=== PATIENT | female | born 1965 | race Caucasian/White ===

== ENCOUNTER 2021-02-25 08:03 | Inpatient (IN) | payer MEDICARE, MEDICAID ==
[~2021-02-25] VITALS: Ht 152.4 cm; Wt 101.2 kg
[2021-02-25 11:27] VITALS: BP 141/74
[2021-02-25] MEDS ORDERED: BISACODYL 10 MG SUPP PR PRN (11:35)
[2021-02-25] MEDS ORDERED: GLUCAGON INJ 1MG VIAL SC PRN (11:35)
[2021-02-25] MEDS ORDERED: HEPARIN SOD (PORCINE) 5000UNITS/ML 1ML VIAL/SYRINGE SC SCH (11:35)
[2021-02-25] MEDS ORDERED: DEXTROSE 50% 50 ML SYRINGE IV PRN (11:35)
[2021-02-25] MEDS ORDERED: GLUCOSE 4GM CHEW TABLET PO PRN (11:35)
--- NOTE | 2021-02-25 11:49 | HPEPDOC ---
Professional Poker Player Note DATE OF ADMISSION: 02-25-21 DATE OF SERVICE: 02-25-21 TIME OF ADMISSION: Please refer to physician's admission order. SOURCE OF ADMISSION INFORMATION: [facility] records and patient CHIEF COMPLAINT: stroke HISTORY OF PRESENT ILLNESS: 55F pmh AYESHA, anxiety/depression, GERD, HTN, HLD, fibroids, obesity, RLS, urinary incontinence who was admitted to [facility] on 02-21-21 after having been watched under observation a few days prior and treated for a pyelonephritis with a negative stroke work-up, returned with persistent left sided weakness with slurred speech. She was having difficulty swallowing and MRI brain with contrast was done showing 1.5x0.8cm acute to subacute nonhemorrhagic infarct involving the right aspect of the servando. She was started on Plavix in addition to her home ASA dosing. 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 She had significant left sided weakness, mobility and ADL impairments and deemed medically appropriate for discharge to ARU on 02-25-21. REVIEW OF SYSTEMS: The following is a completed review of systems and has been reviewed. Review of systems otherwise unremarkable. PAIN: Patient self reports neck and bandlike pain on back of head EYES: No recent vision changes EARS, NOSE, & THROAT: No throat pain, or dysphagia, or rhinorrhea CARDIOVASCULAR: Denies chest pain or palpitations PULMONARY: Denies shortness of breath GASTROINTESTINAL: Denies constipation/diarrhea GENITOURINARY: +incontinence (chronic) MUSCULOSKELETAL: left sided weakness NEUROLOGICAL:denies paresthesias, HEMATOLOGICAL: denies easy bruising SKIN: denies rash PSYCHIATRIC: Unremarkable All other review of systems found to be negative. PAST MEDICAL HISTORY: as per HPI PAST SURGICAL HISTORY: tubal ligation, left TKR, ureteral surgery in childhood ALLERGIES: Please see below. MEDICATIONS: Please see below. FAMILY HISTORY: cardiac SOCIAL HISTORY: denies smoking,etoh, illicit drugs DIET: low salt PHYSICAL EXAMINATION: VITAL SIGNS: Please see below. GENERAL: Pleasant and cooperative. No acute distress. Alert and oriented times three. HEENT: PERRL. Extraocular movements intact. Clear conjunctiva, mild right sided facial droop CARDIOVASCULAR: Regular rate and rhythm. No murmurs, rubs, or gallop LUNGS: Clear to auscultation bilaterally. No wheezes. No rhonchi ABDOMEN: Soft, nontender, nondistended. Positive bowel sounds. Normal active bowel sounds NEUROLOGICAL: Alert and oriented times three. Cranial nerves II through XII grossly intact. Sensation grossly intact EXTREMITIES: 5\5 RUE and 3+/5 LUE, 5\5 strength right lower extremity. 3+/5 strength in left lower extremity. TTP cervical paraspinals and along occipital ridge LABORATORY DATA: Please see below. IMAGING:Imaging documentation personally reviewed by record FUNCTIONAL STATUS: Premorbid: Independent with all activities of daily life as well as mobility On Admission: contact guard for be mobility, ambulation, dressing, toileting GOALS: Mod-I for ambulation, bed mobility, functional transfers, dressing, toileting ASSESSMENT:55-year-old F with past medical history of HTN and DM who presents status post right pontine stroke PLAN: 1. Rehab- PT/OT advance mobility and ADLs, strengthen/stretch/maintain ROM all 4 limbs -FLAT HAMMERER for cog and swallow, will downgrade patient to level 3 solids until seen by FLAT HAMMERER 2. 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 Cardiac- hx of HTN cont BP meds -HLD- cont statin -medicine consulted to assist in overall management 4. Resp- probable AYESHA- nocturnal 02, refer for outpatient sleep study on d/c -monitor for infection 5. Endo- hx of DM with recent episode of ketonuria due to poor po intake, will check A1C, cont off metformin while in hospital, ISS 6. - completed course of antibiotics for Pyelonephritis, monitor for infection - hx of chronic incontinence will start oxybutynin 7. GI ppx- prilosec 8. DVT ppx- heparin, teds 9. 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 Psych- zoloft for depression -rozerem for insomnia 11. Dispo- tbd POST ADMISSION PHYSICIAN EVALUATION: Medical and functional status: Description of medical status, medical assessment: As above. Rehabilitation diagnosis and current and prior cold morbid medical conditions as above. Risk of complications and plans to mitigate them as above. Description of functional status current status is as above. Prior status as above. Status compared to preadmission: There are no clinically significant differences between the patient's current status and the information described on the preadmission screening document. Treatment plan anticipated: Treatment plan is as described above. Required disciplines including physical therapy, occupational therapy, others as noted above Intensity of services: 3 hours a day, 6 days a week. Special considerations: There are no specific special or safety considerations that would likely preclude immediate implementation of an intensive rehabilitation program or subsequently influence the plan of care. ATTESTATION: Considering all the information above, it is my best judgment that this patient requires intensive rehabilitation therapy as described above and an inpatient hospital environment due to the complexity of nursing, medical, and rehabilitation needs required by the patient. Furthermore, this patient can reasonably be expected to participate in an benefit from an inpatient rehabilitation stay with an interdisciplinary team approach to the delivery of rehabilitation care under the direction and supervision of rehabilitation physician PROGNOSIS: Excellent ESTIMATED LENGTH OF STAY:10-14 days. PROJECTED DISCHARGE DESTINATION: Home with family support and any durable medical equipment required to increase functional safety and mobility TIME SPENT COUNSELING AND COORDINATING INITIAL CARE: Greater than 70 minutes. Vital Signs Vital Signs Date Time Temp Pulse Resp B/P (MAP) Pulse Ox O2 Delivery O2 Flow Rate FiO2 02/25/21 11:27 98.1 64 18 141/74 (96) 95 Room Air Home Medications Scheduled Aspirin (Aspirin) 81 Mg Tab.chew, 81 MG PO DAILY, (Reported) Atorvastatin Calcium (Atorvastatin Calcium) 40 Mg Tablet, 40 MG PO QHS, (Reported) CHANGED FROM SIMVASTATIN 80MG AT [facility] Cholecalciferol (Vitamin D3) (Vitamin D3) 1,000 Unit Tablet, 2,000 UNITS PO DAILY, (Reported) Clopidogrel Bisulfate (Plavix) 75 Mg Tablet, 75 MG PO DAILY, (Reported) STARTED AT [facility] Cyanocobalamin (Vitamin B-12) (Vitamin B-12) 1,000 Mcg Capsule, 1,000 MCG PO DAILY, (Reported) Enalapril Maleate (Enalapril Maleate) 5 Mg Tablet, 5 MG PO BID, (Reported) Gabapentin (Gabapentin) 100 Mg Capsule, 200 MG PO TID, (Reported) STARTED AT [facility] Hydrochlorothiazide (Hydrochlorothiazide) 12.5 Mg Capsule, 12.5 MG PO DAILY, (Reported) Meloxicam (Meloxicam) 15 Mg Tablet, 15 MG PO QHS, (Reported) Metformin HCl (Metformin HCl ER) 500 Mg Tab.er.24h, 500 MG PO BID, (Reported) Metoprolol Tartrate (Metoprolol Tartrate) 50 Mg Tablet, 50 MG PO BID, (Reported) Omeprazole (Omeprazole) 20 Mg Capsule.dr, 20 MG PO BID, (Reported) Sertraline HCl (Sertraline HCl) 25 Mg Tablet, 25 MG PO DAILY, (Reported) STARTED AT [facility] Allergies Coded Allergies: Sulfa (Sulfonamide Antibiotics) (Verified Allergy, Mild, ITCHING, 02/25/21) ceftriaxone (Verified Allergy, Mild, ITCHING, 02/25/21) ciprofloxacin (Verified Allergy, Mild, ITCHING, 02/25/21) A-FIB/CHADSVASC A-FIB History Current/History of A-Fib/PAF?: No Current PO Anticoag Therapy: No NEIDA CORREA MD Feb 25, 2021 11:49
[2021-02-25] MEDS ORDERED: HYDR12CA PO (13:11)
[2021-02-25] MEDS ORDERED: METF-838 PO (13:11)
[2021-02-25] MEDS ORDERED: METO50TA7 PO (13:11)
[2021-02-25] MEDS ORDERED: GABA-1171 PO (13:11)
[2021-02-25] MEDS ORDERED: OMEP1CAP73 PO (13:11)
[2021-02-25] MEDS ORDERED: PLAV1TAB2 PO (13:11)
[2021-02-25] MEDS ORDERED: SERT25TA21 PO (13:11)
[2021-02-25] MEDS ORDERED: B-12100010 PO (13:11)
[2021-02-25] MEDS ORDERED: ASPI81CH33 PO (13:11)
[2021-02-25] MEDS ORDERED: ATOR40TA75 PO (13:11)
[2021-02-25] MEDS ORDERED: ENAL5TA PO (13:11)
[2021-02-25] MEDS ORDERED: MELO15TA28 PO (13:11)
[2021-02-25] MEDS ORDERED: D31000TA2 PO (13:11)
[2021-02-25] MEDS ORDERED: HOME MED LIST COMPLETE! XX SCH (13:15)
[2021-02-25] MEDS: LIDOCAINE 5% (LIDODERM) PATCH TD SCH (13:51)
[2021-02-25] MEDS: HumaLOG INSULIN (NovoLOG) PER UNIT SC SCH ×3 (13:52→21:00)
[2021-02-25 14:00] VITALS: BP 137/81
[2021-02-25] MEDS: ACETAMINOPHEN 500 MG TAB PO SCH ×2 (14:04→21:07)
[2021-02-25] MEDS: REMEDY PHYTOPLEX Z-GUARD PASTE 113GM TUBE (FROM STOREROOM PRODUCT) TOP SCH ×2 (16:00→21:00)
[2021-02-25] MEDS: GABAPENTIN 100 MG CAP PO SCH ×2 (16:19→21:07)
[2021-02-25 20:00] VITALS: BP 140/80
[2021-02-25] MEDS: SENNA 8.6 MG TAB (SENOKOT) PO SCH (21:00)
[2021-02-25] MEDS: DOCUSATE SODIUM 100MG CAPSULE PO SCH (21:00)
[2021-02-25] MEDS: RAMELTEON 8 MG TAB (ROZEREM) PO PRN (21:06)
[2021-02-25] MEDS: OMEPRAZOLE 20 MG CAP PO SCH (21:07)
[2021-02-25] MEDS: ATORVASTATIN 20 MG TAB PO SCH (21:07)
[2021-02-25] MEDS: **NOTE PATIENT COMMENT** MISC XX SCH (21:07)
[2021-02-25] MEDS: METOPROLOL TART 50 MG TAB PO SCH (21:09)
[2021-02-25] MEDS: HEPARIN SOD (PORCINE) 5000UNITS/ML 1ML VIAL/SYRINGE SC SCH (21:10)
[2021-02-25] MEDS: ENALAPRIL MALEATE 10 MG TAB PO SCH (21:10)
[2021-02-26] MEDS: ACETAMINOPHEN 500 MG TAB PO SCH ×3 (05:20→20:14)
[2021-02-26 05:49] VITALS: BP 126/60
[2021-02-26 08:36] LABS: BASO % 0.5 % (0.0-1.0); EOS # 0.2 10^3/uL (0.0-0.5); EOS % 5.7 % (0.0-3.0); HEMATOCRIT 39.4 % (36.0-47.0); HEMOGLOBIN 12.8 g/dl (12.0-15.5); LYMPH # 1.2 10^3/uL (1.5-5.0); LYMPH % 31.6 % (24.0-44.0); MEAN CORPUSCULAR HEMOGLOBIN 29.1 pg (27.0-33.0); MEAN CORPUSCULAR HGB CONC 32.5 g/dl (32.0-36.5); MEAN CORPUSCULAR VOLUME 89.5 fl (80.0-96.0); MONO # 0.4 10^3/uL (0.0-0.8); MONO % 10.4 % (2.0-8.0); PLATELET COUNT, AUTOMATED 177 10^3/uL (150-450); WHITE BLOOD COUNT 3.9 10^3/uL (4.0-10.0)
[2021-02-26 08:54] LABS: ALBUMIN 3.4 GM/DL (3.2-5.2); ALT/SGPT 24 U/L (12-78); BILIRUBIN,TOTAL 0.5 MG/DL (0.2-1.0); BLOOD UREA NITROGEN 23 MG/DL (7-18); CALCIUM LEVEL 9.6 MG/DL (8.5-10.1); CARBON DIOXIDE LEVEL 30 MEQ/L (21-32); CHLORIDE LEVEL 107 MEQ/L (98-107); CREATININE FOR GFR 0.51 MG/DL (0.55-1.30); GLOMERULAR FILTRATION RATE > 60.0 (>51); GLUCOSE, FASTING 111 MG/DL (70-100); POTASSIUM SERUM 4.2 MEQ/L (3.5-5.1); SODIUM LEVEL 143 MEQ/L (136-145); TOTAL PROTEIN 6.4 GM/DL (6.4-8.2)
[2021-02-26] MEDS: GABAPENTIN 100 MG CAP PO SCH ×3 (08:56→20:09)
[2021-02-26] MEDS: LIDOCAINE 5% (LIDODERM) PATCH TD SCH (08:56)
[2021-02-26] MEDS: OMEPRAZOLE 20 MG CAP PO SCH ×2 (08:57→20:09)
[2021-02-26] MEDS: ASPIRIN 81MG ENTERIC TABLET PO SCH (08:57)
[2021-02-26] MEDS: VITAMIN D 1,000 INTERNATIONAL UNITS TABLET PO SCH (08:57)
[2021-02-26] MEDS: HEPARIN SOD (PORCINE) 5000UNITS/ML 1ML VIAL/SYRINGE SC SCH ×2 (08:57→20:09)
[2021-02-26] MEDS: CLOPIDOGREL 75 MG TAB PO SCH (08:57)
[2021-02-26] MEDS: CYANOCOBALAMIN 500 MCG TAB PO SCH (08:57)
[2021-02-26] MEDS: DOCUSATE SODIUM 100MG CAPSULE PO SCH ×2 (08:57→20:09)
[2021-02-26] MEDS: METOPROLOL TART 50 MG TAB PO SCH ×2 (08:58→20:11)
[2021-02-26] MEDS: ENALAPRIL MALEATE 10 MG TAB PO SCH ×2 (08:58→20:10)
[2021-02-26] MEDS: hydroCHLOROthiazide 12.5 MG CAPSULE PO SCH (08:58)
[2021-02-26] MEDS: REMEDY PHYTOPLEX Z-GUARD PASTE 113GM TUBE (FROM STOREROOM PRODUCT) TOP SCH ×3 (08:59→20:11)
[2021-02-26] MEDS: HumaLOG INSULIN (NovoLOG) PER UNIT SC SCH ×4 (08:59→20:11)
[2021-02-26] MEDS: SERTRALINE HCL 25 MG TABLET PO SCH (09:16)
--- NOTE | 2021-02-26 10:23 | IPNPDOC ---
PM&R Progress Note DATE OF SERVICE: Feb 26, 2021 Gravity Meter Observer Progress Note Subjective: Patient reporting she has been doing intermittent fasting for months and lost a lot of weight. She was happy to hear her A1 C was 6.4% and was encouraged to continue with diet and exercise to control her diabetes. REVIEW OF SYSTEMS: The following is a completed review of systems and has been reviewed. Review of systems otherwise unremarkable. PAIN: Patient self reports neck and bandlike pain on back of head EYES: No recent vision changes EARS, NOSE, & THROAT: No throat pain, or dysphagia, or rhinorrhea CARDIOVASCULAR: Denies chest pain or palpitations PULMONARY: Denies shortness of breath GASTROINTESTINAL: Denies constipation/diarrhea GENITOURINARY: +incontinence (chronic) MUSCULOSKELETAL: left sided weakness NEUROLOGICAL:denies paresthesias, HEMATOLOGICAL: denies easy bruising SKIN: denies rash PSYCHIATRIC: Unremarkable All other review of systems found to be negative. PHYSICAL EXAMINATION: VITAL SIGNS: Please see below. GENERAL: Pleasant and cooperative. No acute distress. Alert and oriented times three. HEENT: PERRL. Extraocular movements intact. Clear conjunctiva, mild right sided facial droop CARDIOVASCULAR: Regular rate and rhythm. No murmurs, rubs, or gallop LUNGS: Clear to auscultation bilaterally. No wheezes. No rhonchi ABDOMEN: Soft, nontender, nondistended. Positive bowel sounds. Normal active bowel sounds NEUROLOGICAL: Alert and oriented times three. Cranial nerves II through XII grossly intact. Sensation grossly intact EXTREMITIES: 5\5 RUE and 3+/5 LUE, 5\5 strength right lower extremity. 3+/5 strength in left lower extremity. TTP cervical paraspinals and along occipital ridge ASSESSMENT:55-year-old F with past medical history of HTN and DM who presents status post right pontine stroke PLAN: 1. Rehab- PT/OT advance mobility and ADLs, strengthen/stretch/maintain ROM all 4 limbs, ambulating with RW -RU[employer] SOFTWARE DEVELOPER for cog and swallow, will downgrade patient to level 3 solids until seen by [employer] DEVELOPER 2. 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 Cardiac- hx of HTN cont BP meds -HLD- cont statin -medicine consulted to assist in overall management 4. Resp- probable AYESHA- nocturnal 02, refer for outpatient sleep study on d/c -monitor for infection 5. Endo- hx of DM with recent episode of ketonuria due to poor po intake, A1C 6. 4 %, cont diet and exercise 6. - completed course of antibiotics for Pyelonephritis, monitor for infection - hx of chronic incontinence will start oxybutynin 7. GI ppx- prilosec 8. DVT ppx- heparin, teds 9. 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 Psych- zoloft for depression -rozerem for insomnia 11. Dispo- tbd Allergies Coded Allergies: Sulfa (Sulfonamide Antibiotics) (Verified Allergy, Mild, ITCHING, 02/25/21) ceftriaxone (Verified Allergy, Mild, ITCHING, 02/25/21) ciprofloxacin (Verified Allergy, Mild, ITCHING, 02/25/21) Vital Signs Vital Signs Date Time Temp Pulse Resp B/P (MAP) Pulse Ox O2 Delivery O2 Flow Rate FiO2 02/26/21 08:58 80 142/83 02/26/21 05:49 97.6 18 96 Room Air Laboratory Data CBC/BMP Laboratory Tests 02/26/21 07:46 Labs 24H Laboratory Tests 2 02/25/21 12:08: Bedside Glucose (Misc Panel) 125H 02/25/21 17:07: Bedside Glucose (Misc Panel) 103 02/25/21 19:27: Bedside Glucose (Misc Panel) 138H 02/26/21 04:51: Bedside Glucose (Misc Panel) 110H 02/26/21 07:46: Immature Granulocyte % (Auto) 0.8, Neutrophils (%) (Auto) 51.0, Lymphocytes (%) (Auto) 31.6, Monocytes (%) (Auto) 10.4H, Eosinophils (%) (Auto) 5.7H, Basophils (%) (Auto) 0.5, Neutrophils # (Auto) 2.0, Lymphocytes # (Auto) 1.2L, Monocytes # (Auto) 0.4, Eosinophils # (Auto) 0.2, Basophils # (Auto) 0.0, Nucleated Red Blood Cells % (auto) 0.0, Anion Gap 6L, Glomerular Filtration Rate > 60.0, Ca lcium Level 9.6, Total Bilirubin 0.5, Aspartate Amino Transf (AST/SGOT) 13, Alanine Aminotransferase (ALT/SGPT) 24, Alkaline Phosphatase 70, Total Protein 6.4, Albumin 3.4, Albumin/Globulin Ratio 1.1L Current Medications Current Medications Current Medications Medications (Trade) Dose Ordered Sig/Mike Route PRN Reason Start Time Stop Time Status Last Admin Dose Admin Acetaminophen (Tylenol Tab) 1,000 mg Q8H PO 02/25/21 14:00 02/26/21 05:20 Aspirin (Ecotrin) 81 mg DAILY PO 02/26/21 09:00 02/26/21 08:57 Atorvastatin Calcium (Lipitor) 40 mg QHS PO 02/25/21 21:00 02/25/21 21:07 Bisacodyl (Dulcolax Suppository) 10 mg DAILYPRN PRN MI CONSTIPATION 02/25/21 11:35 Clopidogrel Bisulfate (PLAVix) 75 mg DAILY PO 02/26/21 09:00 02/26/21 08:57 Cyanocobalamin (Vitamin B12) 1,000 mcg DAILY PO 02/26/21 09:00 02/26/21 08:57 Dextrose (Dextrose 50%) 25 ml ASDIRECTED PRN IV SEE LABEL COMMENTS 02/25/21 11:35 Docusate Sodium (Colace) 100 mg BID PO 02/25/21 21:00 Enalapril Maleate (Vasotec) 5 mg BID PO 02/25/21 21:00 02/26/21 08:58 Gabapentin (Neurontin) 200 mg TID PO 02/25/21 16:00 02/26/21 08:56 Glucagon (Glucagon) 1 mg ASDIRECTED PRN SC SEE LABEL COMMENTS 02/25/21 11:35 Glucose (Glucose) 16 GM ASDIRECTED PRN PO SEE LABEL COMMENTS 02/25/21 11:35 Heparin Sodium (Porcine) (Heparin) 5,000 units Q12H SC 02/25/21 11:35 02/25/21 20:55 DC Heparin Sodium (Porcine) (Heparin) 5,000 units Q12H SC 02/25/21 21:00 02/26/21 08:57 Home Med (Home Med List Complete!) ASDIRECTED XX 02/25/21 13:15 02/25/21 13:28 DC Hydrochlorothiazide (Hydrodiuril) 12.5 mg DAILY PO 02/26/21 09:00 02/26/21 08:58 Insulin Human Lispro (HumaLOG INSULIN) SEE PROTOCOL TABLE AC SC 02/25/21 12:00 02/26/21 08:59 Insulin Human Lispro (HumaLOG INSULIN) SEE PROTOCOL TABLE QHS SC 02/25/21 21:00 Lidocaine (Lidoderm Patch) 1 patch DAILY TD 02/25/21 09:00 02/26/21 08:56 Metoprolol Tartrate (Lopressor) 50 mg BID PO 02/25/21 21:00 02/26/21 08:58 Non-Formulary Medication ( See Comment Field Below ) REMOVE LIDODERM PATCH DAILY@21 XX 02/25/21 21:00 02/25/21 21:07 Omeprazole (PriLOSEC) 20 mg BID PO 02/25/21 21:00 02/26/21 08:57 Oxybutynin Chloride (Ditropan Xl) 5 mg DAILY PO 02/26/21 12:00 Ramelteon (Rozerem) 8 mg QHS PRN PO INSOMNIA 02/25/21 20:30 02/25/21 21:06 Senna (Senokot) 1 tab QHS PO 02/25/21 21:00 Sertraline HCl (Zoloft) 25 mg DAILY PO 02/26/21 09:00 02/26/21 09:16 Vitamin D (Vitamin D) 2,000 units DAILY PO 02/26/21 09:00 02/26/21 08:57 NEIDA CORREA MD Feb 26, 2021 10:23
[2021-02-26 11:26] LABS: HEMOGLOBIN A1c 6.4 %
[2021-02-26] MEDS: oxyBUTYnin *DITROPAN XL* 5 MG TABCR PO SCH (12:22)
[2021-02-26 14:00] VITALS: BP 133/67
--- NOTE | 2021-02-26 16:02 | CR.PDOC ---
General Date of Consultation: Feb 26, 2021 Referring Provider: NEIDA CORREA MD Attending Physician: JOSE TORRES MD Consultation REASON FOR CONSULTATION/CHIEF COMPLAINT: s/p Stroke in ARU, for medical co- management HISTORY OF PRESENT ILLNESS: 55 yo W with a history of obesity, HTN, HLD, AYESHA and GERD who was admitted to the [facility] ARU for rehabilitation after a R pontine CVA with L sided deficits and mild droop and MRI brain showed 1.5x0.8cm acute to subacute nonhemorrhagic inf arct involving the right aspect of the servando At [facility] During that hospitalization she was also treated for pyelonephritis. She was started on ASA/Plavix. CTA brain and neck were done and were significant for narrowing of the basilar artery.She was ultimately discharged to the [facility] ARU for persistent left sided weakness, mobility and ADL impairments. REVIEW OF SYSTEMS: 10 point ROS was grossly negative at this time. Feels tired, as i saw her after her 3rd hour of physical therapy. PAST MEDICAL HISTORY: Morbid obesity HTN HLD AYESHA anxiety/depression GERD Fibroids RLS urinary incontinence PAST SURGICAL HISTORY: Tubal ligation L total knee arthroplasty Ureteral surgery in childhood ALLERGIES: Please see below. MEDICATIONS: Please see below. FAMILY HISTORY: CAD PR HTN SOCIAL HISTORY: No smoking No alcohol No illicit drugs PHYSICAL EXAMINATION: VITAL SIGNS: Please see below. GENERAL: Exhausted, but pleasant, NAD HEENT: NCAT, EOMI, MMM CARDIOVASCULAR: RRR, no m/r/g LUNGS: CTAB, without crackles, wheezing or rhonchi ABDOMEN: Obese, normoactive sounds, soft, NTND NEUROLOGICAL: AOx3, has mild facial droop, with otherwise grossly normal CN3-12. 3.5/5 strength in LUE and LLE, 5/5 in RUE and RLE. Sensation grossly intact. LABORATORY DATA: reviewed IMAGING: Reviewed all [place] imaging reports. ASSESSMENT: 55 yo W with a history of obesity, HTN, HLD, AYESHA and GERD who was admitted to the [facility] ARU for rehabilitation after a R pontine CVA with L sided deficits and mild droop. PLAN: R pontine CVA: -continue ASA 81 mg QD and plavix 75mg QD for 90d after which she will be on ASA only -continue lipitor 40mg QHS -PT/OT per PM&R HTN -cont enalapril, HCTZ and metoprolol HLD -continue lipitor Probable AYESHA? -continue nocturnal 02, to refer for outpatient sleep study on d/c from ARU DM -a1c 6.4, to continue SSI AC/HS with FSBG AC/HS and hypoglycemia protocol Recent history of pyelonephritis: s/p full course of antibiotics GERD: -continue omeprazole Depression -continue sertraline DVT ppx: heparin sc and TEDS Vital Signs/I&O Vital Signs Date Time Temp Pulse Resp B/P (MAP) Pulse Ox O2 Delivery O2 Flow Rate FiO2 02/26/21 08:58 80 142/83 02/26/21 05:49 97.6 18 96 Room Air I&O- Last 24 Hours up to 6 AM 02/26/21 06:00 Intake Total 600 ml Balance 600 ml Laboratory Data Labs 24H Laboratory Tests 2 02/25/21 17:07: Bedside Glucose (Misc Panel) 103 02/25/21 19:27: Bedside Glucose (Misc Panel) 138H 02/26/21 04:51: Bedside Glucose (Misc Panel) 110H 02/26/21 07:46: Immature Granulocyte % (Auto) 0.8, Neutrophils (%) (Auto) 51.0, Lymphocytes (%) (Auto) 31.6, Monocytes (%) (Auto) 10.4H, Eosinophils (%) (Auto) 5.7H, Basophils (%) (Auto) 0.5, Neutrophils # (Auto) 2.0, Lymphocytes # (Auto) 1.2L, Monocytes # (Auto) 0.4, Eosinophils # (Auto) 0.2, Basophils # (Auto) 0.0, Nucleated Red Blood Cells % (auto) 0.0, Anion Gap 6L, Glomerular Filtration Rate > 60.0, Estimated Mean Plasma Glucose 137H, Hemoglobin A1c 6.4, Calcium Level 9.6, Total Bilirubin 0.5, Aspartate Amino Transf (AST/SGOT) 13, Alanine Aminotransferase (ALT/SGPT) 24, Alkaline Phosphatase 70, Total Protein 6.4, Albumin 3.4, Albumin/Globulin Ratio 1.1L 02/26/21 12:16: Bedside Glucose (Misc Panel) 130H CBC/BMP Laboratory Tests 02/26/21 07:46 Allergies Coded Allergies: Sulfa (Sulfonamide Antibiotics) (Verified Allergy, Mild, ITCHING, 02/25/21) ceftriaxone (Verified Allergy, Mild, ITCHING, 02/25/21) ciprofloxacin (Verified Allergy, Mild, ITCHING, 02/25/21) Home Medications Scheduled Aspirin (Aspirin) 81 Mg Tab.chew, 81 MG PO DAILY, (Reported) Atorvastatin Calcium (Atorvastatin Calcium) 40 Mg Tablet, 40 MG PO QHS, (Reported) CHANGED FROM SIMVASTATIN 80MG AT [facility] Cholecalciferol (Vitamin D3) (Vitamin D3) 1,000 Unit Tablet, 2,000 UNITS PO DAILY, (Reported) Clopidogrel Bisulfate (Plavix) 75 Mg Tablet, 75 MG PO DAILY, (Reported) STARTED AT [facility] Cyanocobalamin (Vitamin B-12) (Vitamin B-12) 1,000 Mcg Capsule, 1,000 MCG PO DAILY, (Reported) Enalapril Maleate (Enalapril Maleate) 5 Mg Tablet, 5 MG PO BID, (Reported) Gabapentin (Gabapentin) 100 Mg Capsule, 200 MG PO TID, (Reported) STARTED AT [facility] Hydrochlorothiazide (Hydrochlorothiazide) 12.5 Mg Capsule, 12.5 MG PO DAILY, (Reported) Meloxicam (Meloxicam) 15 Mg Tablet, 15 MG PO QHS, (Reported) Metformin HCl (Metformin HCl ER) 500 Mg Tab.er.24h, 500 MG PO BID, (Reported) Metoprolol Tartrate (Metoprolol Tartrate) 50 Mg Tablet, 50 MG PO BID, (Reported) Omeprazole (Omeprazole) 20 Mg Capsule.dr, 20 MG PO BID, (Reported) Sertraline HCl (Sertraline HCl) 25 Mg Tablet, 25 MG PO DAILY, (Reported) STARTED AT [facility] JOSE TORRES MD Feb 26, 2021 15:21
[2021-02-26 20:00] VITALS: BP 139/80
[2021-02-26] MEDS: SENNA 8.6 MG TAB (SENOKOT) PO SCH (20:09)
[2021-02-26] MEDS: ATORVASTATIN 20 MG TAB PO SCH (20:09)
[2021-02-26] MEDS: **NOTE PATIENT COMMENT** MISC XX SCH (20:12)
[2021-02-27] MEDS: ACETAMINOPHEN 500 MG TAB PO SCH ×3 (05:23→20:21)
[2021-02-27 06:09] VITALS: BP 141/71
[2021-02-27] MEDS: HumaLOG INSULIN (NovoLOG) PER UNIT SC SCH ×4 (08:09→20:23)
[2021-02-27] MEDS: OMEPRAZOLE 20 MG CAP PO SCH ×2 (08:10→20:22)
[2021-02-27] MEDS: oxyBUTYnin *DITROPAN XL* 5 MG TABCR PO SCH (08:10)
[2021-02-27] MEDS: DOCUSATE SODIUM 100MG CAPSULE PO SCH ×3 (08:10→20:31)
[2021-02-27] MEDS: CLOPIDOGREL 75 MG TAB PO SCH (08:10)
[2021-02-27] MEDS: SERTRALINE HCL 25 MG TABLET PO SCH (08:11)
[2021-02-27] MEDS: hydroCHLOROthiazide 12.5 MG CAPSULE PO SCH (08:11)
[2021-02-27] MEDS: METOPROLOL TART 50 MG TAB PO SCH ×2 (08:11→20:20)
[2021-02-27] MEDS: ENALAPRIL MALEATE 10 MG TAB PO SCH ×2 (08:12→20:23)
[2021-02-27] MEDS: VITAMIN D 1,000 INTERNATIONAL UNITS TABLET PO SCH (08:13)
[2021-02-27] MEDS: LIDOCAINE 5% (LIDODERM) PATCH TD SCH ×2 (08:13→08:38)
[2021-02-27] MEDS: CYANOCOBALAMIN 500 MCG TAB PO SCH (08:14)
[2021-02-27] MEDS: HEPARIN SOD (PORCINE) 5000UNITS/ML 1ML VIAL/SYRINGE SC SCH ×2 (08:14→20:23)
[2021-02-27] MEDS: GABAPENTIN 100 MG CAP PO SCH ×3 (08:14→20:20)
[2021-02-27] MEDS: REMEDY PHYTOPLEX Z-GUARD PASTE 113GM TUBE (FROM STOREROOM PRODUCT) TOP SCH ×3 (08:14→20:24)
[2021-02-27] MEDS: ASPIRIN 81MG ENTERIC TABLET PO SCH (08:15)
[2021-02-27 14:00] VITALS: BP 132/67
[2021-02-27 20:20] VITALS: BP 130/63
[2021-02-27] MEDS: ATORVASTATIN 20 MG TAB PO SCH (20:20)
[2021-02-27] MEDS: SENNA 8.6 MG TAB (SENOKOT) PO SCH (20:22)
[2021-02-27] MEDS: **NOTE PATIENT COMMENT** MISC XX SCH (20:24)
[2021-02-28 05:36] VITALS: BP 154/85
[2021-02-28] MEDS: ACETAMINOPHEN 500 MG TAB PO SCH ×3 (05:51→21:47)
[2021-02-28] MEDS: HumaLOG INSULIN (NovoLOG) PER UNIT SC SCH ×4 (07:46→21:00)
[2021-02-28] MEDS: HEPARIN SOD (PORCINE) 5000UNITS/ML 1ML VIAL/SYRINGE SC SCH ×2 (07:46→21:48)
[2021-02-28] MEDS: hydroCHLOROthiazide 12.5 MG CAPSULE PO SCH (07:46)
[2021-02-28] MEDS: CYANOCOBALAMIN 500 MCG TAB PO SCH (07:47)
[2021-02-28] MEDS: oxyBUTYnin *DITROPAN XL* 5 MG TABCR PO SCH (07:47)
[2021-02-28] MEDS: VITAMIN D 1,000 INTERNATIONAL UNITS TABLET PO SCH (07:47)
[2021-02-28] MEDS: GABAPENTIN 100 MG CAP PO SCH ×3 (07:47→21:47)
[2021-02-28] MEDS: ASPIRIN 81MG ENTERIC TABLET PO SCH (07:47)
[2021-02-28] MEDS: ENALAPRIL MALEATE 10 MG TAB PO SCH ×2 (07:48→21:49)
[2021-02-28] MEDS: CLOPIDOGREL 75 MG TAB PO SCH (07:49)
[2021-02-28] MEDS: SERTRALINE HCL 25 MG TABLET PO SCH (07:50)
[2021-02-28] MEDS: LIDOCAINE 5% (LIDODERM) PATCH TD SCH (07:50)
[2021-02-28] MEDS: OMEPRAZOLE 20 MG CAP PO SCH ×2 (07:50→21:48)
[2021-02-28] MEDS: METOPROLOL TART 50 MG TAB PO SCH ×2 (07:50→21:49)
[2021-02-28] MEDS: DOCUSATE SODIUM 100MG CAPSULE PO SCH ×2 (07:51→21:47)
[2021-02-28] MEDS: REMEDY PHYTOPLEX Z-GUARD PASTE 113GM TUBE (FROM STOREROOM PRODUCT) TOP SCH ×3 (07:51→21:48)
[2021-02-28 14:00] VITALS: BP_SYST 117; BP_SYST 127; BP_DIAS 57; BP_DIAS 86
[2021-02-28] MEDS: RAMELTEON 8 MG TAB (ROZEREM) PO PRN (21:46)
[2021-02-28] MEDS: SENNA 8.6 MG TAB (SENOKOT) PO SCH (21:47)
[2021-02-28] MEDS: ATORVASTATIN 20 MG TAB PO SCH (21:47)
[2021-02-28] MEDS: **NOTE PATIENT COMMENT** MISC XX SCH (21:50)
[2021-02-28 22:16] VITALS: BP 131/81
[2021-03-01] MEDS: ACETAMINOPHEN 500 MG TAB PO SCH ×3 (05:32→21:23)
[2021-03-01 06:00] VITALS: BP 137/78
[2021-03-01 06:49] LABS: BASO % 0.4 % (0.0-1.0); EOS # 0.1 10^3/uL (0.0-0.5); EOS % 1.6 % (0.0-3.0); HEMATOCRIT 40.9 % (36.0-47.0); HEMOGLOBIN 13.2 g/dl (12.0-15.5); LYMPH # 1.7 10^3/uL (1.5-5.0); LYMPH % 32.9 % (24.0-44.0); MEAN CORPUSCULAR HGB CONC 32.3 g/dl (32.0-36.5); MEAN CORPUSCULAR VOLUME 89.9 fl (80.0-96.0); MONO # 0.4 10^3/uL (0.0-0.8); MONO % 8.6 % (2.0-8.0); NEUTROPHILS # 2.8 10^3/uL (1.5-8.5); NEUTROPHILS % 55.7 % (36.0-66.0); PLATELET COUNT, AUTOMATED 192 10^3/uL (150-450); RED BLOOD COUNT 4.55 10^6/uL (4.00-5.40)
[2021-03-01 07:13] LABS: BLOOD UREA NITROGEN 23 MG/DL (7-18); CALCIUM LEVEL 9.2 MG/DL (8.5-10.1); CARBON DIOXIDE LEVEL 31 MEQ/L (21-32); CHLORIDE LEVEL 107 MEQ/L (98-107); CREATININE FOR GFR 0.68 MG/DL (0.55-1.30); GLOMERULAR FILTRATION RATE > 60.0 (>51); GLUCOSE, FASTING 136 MG/DL (70-100); SODIUM LEVEL 141 MEQ/L (136-145)
[2021-03-01] MEDS: HumaLOG INSULIN (NovoLOG) PER UNIT SC SCH (07:25)
[2021-03-01] MEDS: oxyBUTYnin *DITROPAN XL* 5 MG TABCR PO SCH (07:26)
[2021-03-01] MEDS: LIDOCAINE 5% (LIDODERM) PATCH TD SCH (07:26)
[2021-03-01] MEDS: HEPARIN SOD (PORCINE) 5000UNITS/ML 1ML VIAL/SYRINGE SC SCH ×2 (07:26→21:24)
[2021-03-01] MEDS: ASPIRIN 81MG ENTERIC TABLET PO SCH (07:26)
[2021-03-01] MEDS: VITAMIN D 1,000 INTERNATIONAL UNITS TABLET PO SCH (07:26)
[2021-03-01] MEDS: CLOPIDOGREL 75 MG TAB PO SCH (07:27)
[2021-03-01] MEDS: SERTRALINE HCL 25 MG TABLET PO SCH (07:27)
[2021-03-01] MEDS: ENALAPRIL MALEATE 10 MG TAB PO SCH ×2 (07:27→21:22)
[2021-03-01] MEDS: CYANOCOBALAMIN 500 MCG TAB PO SCH (07:27)
[2021-03-01] MEDS: OMEPRAZOLE 20 MG CAP PO SCH ×2 (07:27→21:21)
[2021-03-01] MEDS: GABAPENTIN 100 MG CAP PO SCH ×3 (07:27→21:23)
[2021-03-01] MEDS: DOCUSATE SODIUM 100MG CAPSULE PO SCH ×2 (07:27→21:21)
[2021-03-01] MEDS: hydroCHLOROthiazide 12.5 MG CAPSULE PO SCH (07:27)
[2021-03-01] MEDS: METOPROLOL TART 50 MG TAB PO SCH ×2 (07:28→21:23)
[2021-03-01] MEDS: REMEDY PHYTOPLEX Z-GUARD PASTE 113GM TUBE (FROM STOREROOM PRODUCT) TOP SCH ×3 (07:28→21:24)
--- NOTE | 2021-03-01 09:04 | IPNPDOC ---
PM&R Progress Note DATE OF SERVICE: Mar 01, 2021 Pattern Maker Programer Progress Note Subjective: Patient stating she feels al ittle light headed when she turns her head to the left or when she is looking down and believes it is coming from her neck.l She was instructed on how to do neck strengthening and stretching exercises and to limit the use of her i phone and i pad to improve her neck posture. Her urinary urgency is improving and she would like to go up on the oxybutynin dosing. REVIEW OF SYSTEMS: The following is a completed review of systems and has been reviewed. Review of systems otherwise unremarkable. PAIN: Patient self reports neck and bandlike pain on back of head EYES: No recent vision changes EARS, NOSE, & THROAT: No throat pain, or dysphagia, or rhinorrhea CARDIOVASCULAR: Denies chest pain or palpitations PULMONARY: Denies shortness of breath GASTROINTESTINAL: Denies constipation/diarrhea GENITOURINARY: +incontinence (chronic) MUSCULOSKELETAL: left sided weakness NEUROLOGICAL:denies paresthesias, HEMATOLOGICAL: denies easy bruising SKIN: denies rash PSYCHIATRIC: Unremarkable All other review of systems found to be negative. PHYSICAL EXAMINATION: VITAL SIGNS: Please see below. GENERAL: Pleasant and cooperative. No acute distress. Alert and oriented times three. HEENT: PERRL. Extraocular movements intact. Clear conjunctiva, mild right sided facial droop CARDIOVASCULAR: Regular rate and rhythm. No murmurs, rubs, or gallop LUNGS: Clear to auscultation bilaterally. No wheezes. No rhonchi ABDOMEN: Soft, nontender, nondistended. Positive bowel sounds. Normal active bowel sounds NEUROLOGICAL: Alert and oriented times three. Cranial nerves II through XII grossly intact. Sensation grossly intact EXTREMITIES: 5\5 RUE and 3+/5 LUE, 5\5 strength right lower extremity. 3+/5 strength in left lower extremity. TTP cervical paraspinals and along occipital ridge ASSESSMENT:55-year-old F with past medical history of HTN and DM who presents status post right pontine stroke PLAN: 1. Rehab- PT/OT advance mobility and ADLs, strengthen/stretch/maintain ROM all 4 limbs, ambulating with RW -[employer] for cog and swallow, cont level 3 solids 2. 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 Cardiac- hx of HTN cont BP meds -HLD- cont statin -medicine consulted to assist in overall management 4. Resp- probable AYESHA- nocturnal 02, refer for outpatient sleep study on d/c -monitor for infection 5. Endo- hx of DM with recent episode of ketonuria due to poor po intake, A1C 6.4 %, cont diet and exercise 6. - completed course of antibiotics for Pyelonephritis, monitor for infection - hx of chronic incontinence cont oxybutynin 7. GI ppx- prilosec 8. DVT ppx- heparin, teds 9. 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 Psych- zoloft for depression -rozerem for insomnia 11. Dispo- tbd Allergies Coded Allergies: Sulfa (Sulfonamide Antibiotics) (Verified Allergy, Mild, ITCHING, 02/25/21) ceftriaxone (Verified Allergy, Mild, ITCHING, 02/25/21) ciprofloxacin (Verified Allergy, Mild, ITCHING, 02/25/21) Vital Signs Vital Signs Date Time Temp Pulse Resp B/P (MAP) Pulse Ox O2 Delivery O2 Flow Rate FiO2 03/01/21 07:28 60 137/78 03/01/21 06:00 98.2 18 97 Room Air Laboratory Data CBC/BMP Laboratory Tests 03/01/21 06:00 Labs 24H Laboratory Tests 2 02/28/21 11:35: Bedside Glucose (Misc Panel) 128H 02/28/21 16:50: Bedside Glucose (Misc Panel) 131H 02/28/21 21:44: Bedside Glucose (Misc Panel) 196H 03/01/21 06:00: Immature Granulocyte % (Auto) 0.8, Neutrophils (%) (Auto) 55.7, Lymphocytes (%) (Auto) 32.9, Monocytes (%) (Auto) 8.6H, Eosinophils (%) (Auto) 1.6, Basophils (%) (Auto) 0.4, Neutrophils # (Auto) 2.8, Lymphocytes # (Auto) 1.7, Monocytes # (Auto) 0.4, Eosinophils # (Auto) 0.1, Basophils # (Auto) 0.0, Nucleated Red Blood Cells % (auto) 0.0, Anion Gap 3L, Glomerular Filtration Rate > 60.0, Calcium Level 9.2 Current Medications Current Medications Current Medications Medications (Trade) Dose Ordered Sig/Mike Route PRN Reason Start Time Stop Time Status Last Admin Dose Admin Acetaminophen (Tylenol Tab) 1,000 mg Q8H PO 02/25/21 14:00 03/01/21 05:32 Aspirin (Ecotrin) 81 mg DAILY PO 02/26/21 09:00 03/01/21 07:26 Atorvastatin Calcium (Lipitor) 40 mg QHS PO 02/25/21 21:00 02/28/21 21:47 Bisacodyl (Dulcolax Suppository) 10 mg DAILYPRN PRN [place] CONSTIPATION 02/25/21 11:35 Clopidogrel Bisulfate (PLAVix) 75 mg DAILY PO 02/26/21 09:00 03/01/21 07:27 Cyanocobalamin (Vitamin B12) 1,000 mcg DAILY PO 02/26/21 09:00 03/01/21 07:27 Dextrose (Dextrose 50%) 25 ml ASDIRECTED PRN IV SEE LABEL COMMENTS 02/25/21 11:35 Docusate Sodium (Colace) 100 mg BID PO 02/25/21 21:00 03/01/21 07:27 Enalapril Maleate (Vasotec) 5 mg BID PO 02/25/21 21:00 03/01/21 07:27 Gabapentin (Neurontin) 200 mg TID PO 02/25/21 16:00 03/01/21 07:27 Glucagon (Glucagon) 1 mg ASDIRECTED PRN SC SEE LABEL COMMENTS 02/25/21 11:35 Glucose (Glucose) 16 GM ASDIRECTED PRN PO SEE LABEL COMMENTS 02/25/21 11:35 Heparin Sodium (Porcine) (Heparin) 5,000 units Q12H SC 02/25/21 11:35 02/25/21 20:55 DC Heparin Sodium (Porcine) (Heparin) 5,000 units Q12H SC 02/25/21 21:00 03/01/21 07:26 Home Med (Home Med List Complete!) ASDIRECTED XX 02/25/21 13:15 02/25/21 13:28 DC Hydrochlorothiazide (Hydrodiuril) 12.5 mg DAILY PO 02/26/21 09:00 03/01/21 07:27 Insulin Human Lispro (HumaLOG INSULIN) SEE PROTOCOL TABLE AC SC 02/25/21 12:00 03/01/21 07:25 Insulin Human Lispro (HumaLOG INSULIN) SEE PROTOCOL TABLE QHS SC 02/25/21 21:00 Lidocaine (Lidoderm Patch) 1 patch DAILY TD 02/25/21 09:00 02/26/21 08:56 Metoprolol Tartrate (Lopressor) 50 mg BID PO 02/25/21 21:00 03/01/21 07:28 Non-Formulary Medication ( See Comment Field Below ) REMOVE LIDODERM PATCH DAILY@ XX 02/25/21 21:00 02/28/21 21:50 Omeprazole (PriLOSEC) 20 mg BID PO 02/25/21 21:00 03/01/21 07:27 Oxybutynin Chloride (Ditropan Xl) 5 mg DAILY PO 02/26/21 12:00 03/01/21 07:26 Ramelteon (Rozerem) 8 mg QHS PRN PO INSOMNIA 02/25/21 20:30 02/28/21 21:46 Senna (Senokot) 1 tab QHS PO 02/25/21 21:00 02/28/21 21:47 Sertraline HCl (Zoloft) 25 mg DAILY PO 02/26/21 09:00 03/01/21 07:27 Vitamin D (Vitamin D) 2,000 units DAILY PO 02/26/21 09:00 03/01/21 07:26 NEIDA CORREA MD Mar 01, 2021 09:03
[2021-03-01 14:00] VITALS: BP 104/51
[2021-03-01 20:00] VITALS: BP 120/60
[2021-03-01] MEDS: **NOTE PATIENT COMMENT** MISC XX SCH (21:00)
[2021-03-01] MEDS: SENNA 8.6 MG TAB (SENOKOT) PO SCH (21:21)
[2021-03-01] MEDS: ATORVASTATIN 20 MG TAB PO SCH (21:23)
[2021-03-02] MEDS: ACETAMINOPHEN 500 MG TAB PO SCH ×3 (05:20→21:31)
[2021-03-02 06:00] VITALS: BP 132/73
[2021-03-02] MEDS: ASPIRIN 81MG ENTERIC TABLET PO SCH (07:29)
[2021-03-02] MEDS: oxyBUTYnin *DITROPAN XL* 5 MG TABCR PO SCH (07:30)
[2021-03-02] MEDS: CYANOCOBALAMIN 500 MCG TAB PO SCH (07:30)
[2021-03-02] MEDS: OMEPRAZOLE 20 MG CAP PO SCH ×2 (07:30→20:05)
[2021-03-02] MEDS: VITAMIN D 1,000 INTERNATIONAL UNITS TABLET PO SCH (07:30)
[2021-03-02] MEDS: DOCUSATE SODIUM 100MG CAPSULE PO SCH ×2 (07:30→20:06)
[2021-03-02] MEDS: ENALAPRIL MALEATE 10 MG TAB PO SCH ×2 (07:30→20:06)
[2021-03-02] MEDS: GABAPENTIN 100 MG CAP PO SCH ×3 (07:30→20:07)
[2021-03-02] MEDS: SERTRALINE HCL 25 MG TABLET PO SCH (07:30)
[2021-03-02] MEDS: hydroCHLOROthiazide 12.5 MG CAPSULE PO SCH (07:30)
[2021-03-02] MEDS: CLOPIDOGREL 75 MG TAB PO SCH (07:30)
[2021-03-02] MEDS: REMEDY PHYTOPLEX Z-GUARD PASTE 113GM TUBE (FROM STOREROOM PRODUCT) TOP SCH ×3 (07:31→20:08)
[2021-03-02] MEDS: LIDOCAINE 5% (LIDODERM) PATCH TD SCH (07:31)
[2021-03-02] MEDS: METOPROLOL TART 50 MG TAB PO SCH ×2 (07:31→20:07)
[2021-03-02] MEDS: HEPARIN SOD (PORCINE) 5000UNITS/ML 1ML VIAL/SYRINGE SC SCH ×2 (07:31→20:07)
--- NOTE | 2021-03-02 11:42 | IPNPDOC ---
PM&R Progress Note DATE OF SERVICE: Mar 02, 2021 Row Boss Progress Note Subjective: Patient reporting er neck pain and light headedness is better today after doing neck strengthening exercises. She reoprts her low back is starting to ache and was encouraged to activate her transverse abdominal muscles to support to spine. REVIEW OF SYSTEMS: The following is a completed review of systems and has been reviewed. Review of systems otherwise unremarkable. PAIN: +low back ache EYES: No recent vision changes EARS, NOSE, & THROAT: No throat pain, or dysphagia, or rhinorrhea CARDIOVASCULAR: Denies chest pain or palpitations PULMONARY: Denies shortness of breath GASTROINTESTINAL: Denies constipation/diarrhea GENITOURINARY: +incontinence (chronic)- improving MUSCULOSKELETAL: left sided weakness NEUROLOGICAL:denies paresthesias, HEMATOLOGICAL: denies easy bruising SKIN: denies rash PSYCHIATRIC: Unremarkable All other review of systems found to be negative. PHYSICAL EXAMINATION: VITAL SIGNS: Please see below. GENERAL: Pleasant and cooperative. No acute distress. Alert and oriented times three. HEENT: PERRL. Extraocular movements intact. Clear conjunctiva, mild right sided facial droop CARDIOVASCULAR: Regular rate and rhythm. No murmurs, rubs, or gallop LUNGS: Clear to auscultation bilaterally. No wheezes. No rhonchi ABDOMEN: Soft, nontender, nondistended. Positive bowel sounds. Normal active bowel sounds NEUROLOGICAL: Alert and oriented times three. Cranial nerves II through XII grossly intact. Sensation grossly intact EXTREMITIES: 5\5 RUE and 3+/5 LUE, 5\5 strength right lower extremity. 3+/5 strength in left lower extremity. ASSESSMENT:55-year-old F with past medical history of HTN and DM who presents status post right pontine stroke PLAN: 1. Rehab- PT/OT advance mobility and ADLs, strengthen/stretch/maintain ROM all 4 limbs, ambulating with RW -[employer]TAKE REPRESENTATIVE for cog and swallow, upgraded to regular diet 2. 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 Cardiac- hx of HTN cont BP meds -HLD- cont statin -medicine consulted to assist in overall management 4. Resp- probable AYESHA- nocturnal 02, refer for outpatient sleep study on d/c -monitor for infection 5. Endo- hx of DM with recent episode of ketonuria due to poor po intake, A1C 6.4 %, cont diet and exercise 6. - completed course of antibiotics for Pyelonephritis, monitor for infection - hx of chronic incontinence cont oxybutynin 7. GI ppx- prilosec 8. DVT ppx- heparin, teds 9. Pain- tylenol, avoid meloxicam due to recent stroke, gabapentin -lidoderm patch to neck for cervicogenic headaches, will add lidoderm patch to low back for likely muscle strain, patient encouraged to work on tightening her core with movement to better support her spine 10. Psych- zoloft for depression -rozerem for insomnia 11. Dispo- tbd Allergies Coded Allergies: Sulfa (Sulfonamide Antibiotics) (Verified Allergy, Mild, ITCHING, 02/25/21) ceftriaxone (Verified Allergy, Mild, ITCHING, 02/25/21) ciprofloxacin (Verified Allergy, Mild, ITCHING, 02/25/21) Vital Signs Vital Signs Date Time Temp Pulse Resp B/P (MAP) Pulse Ox O2 Delivery O2 Flow Rate FiO2 03/02/21 07:31 67 132/73 03/02/21 06:00 97.8 18 97 Room Air Laboratory Data Labs 24H Laboratory Tests 2 03/01/21 16:38: Bedside Glucose (Misc Panel) 183H 03/02/21 06:31: Bedside Glucose (Misc Panel) 131H Current Medications Current Medications Current Medications Medications (Trade) Dose Ordered Sig/Mike Route PRN Reason Start Time Stop Time Status Last Admin Dose Admin Acetaminophen (Tylenol Tab) 1,000 mg Q8H PO 02/25/21 14:00 03/02/21 05:20 Aspirin (Ecotrin) 81 mg DAILY PO 02/26/21 09:00 03/02/21 07:29 Atorvastatin Calcium (Lipitor) 40 mg QHS PO 02/25/21 21:00 03/01/21 21:23 Bisacodyl (Dulcolax Suppository) 10 mg DAILYPRN PRN [place] CONSTIPATION 02/25/21 11:35 Clopidogrel Bisulfate (PLAVix) 75 mg DAILY PO 02/26/21 09:00 03/02/21 07:30 Cyanocobalamin (Vitamin B12) 1,000 mcg DAILY PO 02/26/21 09:00 03/02/21 07:30 Dextrose (Dextrose 50%) 25 ml ASDIRECTED PRN IV SEE LABEL COMMENTS 02/25/21 11:35 Docusate Sodium (Colace) 100 mg BID PO 02/25/21 21:00 03/02/21 07:30 Enalapril Maleate (Vasotec) 5 mg BID PO 02/25/21 21:00 03/02/21 07:30 Gabapentin (Neurontin) 200 mg TID PO 02/25/21 16:00 03/02/21 07:30 Glucagon (Glucagon) 1 mg ASDIRECTED PRN SC SEE LABEL COMMENTS 02/25/21 11:35 Glucose (Glucose) 16 GM ASDIRECTED PRN PO SEE LABEL COMMENTS 02/25/21 11:35 Heparin Sodium (Porcine) (Heparin) 5,000 units Q12H SC 02/25/21 11:35 02/25/21 20:55 DC Heparin Sodium (Porcine) (Heparin) 5,000 units Q12H SC 02/25/21 21:00 03/02/21 07:31 Home Med (Home Med List Complete!) ASDIRECTED XX 02/25/21 13:15 02/25/21 13:28 DC Hydrochlorothiazide (Hydrodiuril) 12.5 mg DAILY PO 02/26/21 09:00 03/02/21 07:30 Insulin Human Lispro (HumaLOG INSULIN) SEE PROTOCOL TABLE AC SC 02/25/21 12:00 03/01/21 09:44 DC 03/01/21 07:25 Insulin Human Lispro (HumaLOG INSULIN) SEE PROTOCOL TABLE QHS SC 02/25/21 21:00 03/01/21 09:44 DC Lidocaine (Lidoderm Patch) 1 patch DAILY TD 02/25/21 09:00 02/26/21 08:56 Metoprolol Tartrate (Lopressor) 50 mg BID PO 02/25/21 21:00 03/02/21 07:31 Non-Formulary Medication ( See Comment Field Below ) REMOVE LIDODERM PATCH DAILY@ XX 02/25/21 21:00 02/28/21 21:50 Omeprazole (PriLOSEC) 20 mg BID PO 02/25/21 21:00 03/02/21 07:30 Oxybutynin Chloride (Ditropan Xl) 5 mg DAILY PO 02/26/21 12:00 03/02/21 07:30 Ramelteon (Rozerem) 8 mg QHS PRN PO INSOMNIA 02/25/21 20:30 02/28/21 21:46 Senna (Senokot) 1 tab QHS PO 02/25/21 21:00 03/01/21 21:21 Sertraline HCl (Zoloft) 25 mg DAILY PO 02/26/21 09:00 03/02/21 07:30 Vitamin D (Vitamin D) 2,000 units DAILY PO 02/26/21 09:00 03/02/21 07:30 NEIDA CORREA MD Mar 02, 2021 11:42
[2021-03-02] MEDS ORDERED: oxyBUTYnin *DITROPAN XL* 5 MG TABCR PO ONE (13:00)
[2021-03-02 14:00] VITALS: BP 141/73
[2021-03-02] MEDS ORDERED: LIDOCAINE 5% (LIDODERM) PATCH TD ONE (14:00)
[2021-03-02 20:00] VITALS: BP 125/60
[2021-03-02] MEDS: ATORVASTATIN 20 MG TAB PO SCH (20:06)
[2021-03-02] MEDS: SENNA 8.6 MG TAB (SENOKOT) PO SCH (20:06)
[2021-03-02] MEDS: **NOTE PATIENT COMMENT** MISC XX SCH (20:07)
[2021-03-02] MEDS ORDERED: **NOTE PATIENT COMMENT** MISC XX SCH (21:00)
[2021-03-03] MEDS: ACETAMINOPHEN 500 MG TAB PO SCH ×3 (05:16→20:20)
[2021-03-03 06:00] VITALS: BP 135/67
[2021-03-03 06:56] LABS: BASO % 0.2 % (0.0-1.0); EOS # 0.1 10^3/uL (0.0-0.5); EOS % 1.6 % (0.0-3.0); HEMATOCRIT 39.6 % (36.0-47.0); HEMOGLOBIN 12.8 g/dl (12.0-15.5); LYMPH # 1.5 10^3/uL (1.5-5.0); LYMPH % 30.7 % (24.0-44.0); MEAN CORPUSCULAR HEMOGLOBIN 28.8 pg (27.0-33.0); MEAN CORPUSCULAR HGB CONC 32.3 g/dl (32.0-36.5); MONO # 0.5 10^3/uL (0.0-0.8); NEUTROPHILS # 2.9 10^3/uL (1.5-8.5); NEUTROPHILS % 58.1 % (36.0-66.0); PLATELET COUNT, AUTOMATED 197 10^3/uL (150-450); RED BLOOD COUNT 4.45 10^6/uL (4.00-5.40)
[2021-03-03 07:28] LABS: BLOOD UREA NITROGEN 22 MG/DL (7-18); CALCIUM LEVEL 9.6 MG/DL (8.5-10.1); CARBON DIOXIDE LEVEL 31 MEQ/L (21-32); CHLORIDE LEVEL 105 MEQ/L (98-107); CREATININE FOR GFR 0.62 MG/DL (0.55-1.30); GLOMERULAR FILTRATION RATE > 60.0 (>51); GLUCOSE, FASTING 130 MG/DL (70-100); POTASSIUM SERUM 4.1 MEQ/L (3.5-5.1); SODIUM LEVEL 139 MEQ/L (136-145)
[2021-03-03] MEDS: VITAMIN D 1,000 INTERNATIONAL UNITS TABLET PO SCH (07:58)
[2021-03-03] MEDS: HEPARIN SOD (PORCINE) 5000UNITS/ML 1ML VIAL/SYRINGE SC SCH ×2 (07:58→20:20)
[2021-03-03] MEDS: ENALAPRIL MALEATE 10 MG TAB PO SCH ×2 (07:59→20:12)
[2021-03-03] MEDS: DOCUSATE SODIUM 100MG CAPSULE PO SCH ×2 (07:59→20:13)
[2021-03-03] MEDS: hydroCHLOROthiazide 12.5 MG CAPSULE PO SCH (07:59)
[2021-03-03] MEDS: OMEPRAZOLE 20 MG CAP PO SCH ×2 (08:00→20:13)
[2021-03-03] MEDS: ASPIRIN 81MG ENTERIC TABLET PO SCH (08:00)
[2021-03-03] MEDS: SERTRALINE HCL 25 MG TABLET PO SCH (08:00)
[2021-03-03] MEDS: oxyBUTYnin *DITROPAN XL* 5 MG TABCR PO SCH (08:00)
[2021-03-03] MEDS: GABAPENTIN 100 MG CAP PO SCH ×2 (08:00→16:03)
[2021-03-03] MEDS: CLOPIDOGREL 75 MG TAB PO SCH (08:00)
[2021-03-03] MEDS: REMEDY PHYTOPLEX Z-GUARD PASTE 113GM TUBE (FROM STOREROOM PRODUCT) TOP SCH ×3 (08:01→20:14)
[2021-03-03] MEDS: LIDOCAINE 5% (LIDODERM) PATCH TD SCH (08:01)
[2021-03-03] MEDS: CYANOCOBALAMIN 500 MCG TAB PO SCH (08:01)
[2021-03-03] MEDS: METOPROLOL TART 50 MG TAB PO SCH ×2 (08:01→20:20)
--- NOTE | 2021-03-03 09:47 | IPNPDOC ---
PM&R Progress Note DATE OF SERVICE: Mar 03, 2021 Director Telehealth Progress Note Subjective: Patient reporting she took meloxicam at home for her restless leg but understands this will increase her chances of having another stroke. She is open to trying to increase her evening gabapentin dosing instead. REVIEW OF SYSTEMS: The following is a completed review of systems and has been reviewed. Review of systems otherwise unremarkable. PAIN: +low back ache EYES: No recent vision changes EARS, NOSE, & THROAT: No throat pain, or dysphagia, or rhinorrhea CARDIOVASCULAR: Denies chest pain or palpitations PULMONARY: Denies shortness of breath GASTROINTESTINAL: Denies constipation/diarrhea GENITOURINARY: +incontinence (chronic)- improving MUSCULOSKELETAL: left sided weakness NEUROLOGICAL:denies paresthesias, HEMATOLOGICAL: denies easy bruising SKIN: denies rash PSYCHIATRIC: Unremarkable All other review of systems found to be negative. PHYSICAL EXAMINATION: VITAL SIGNS: Please see below. GENERAL: Pleasant and cooperative. No acute distress. Alert and oriented times three. HEENT: PERRL. Extraocular movements intact. Clear conjunctiva, mild right sided facial droop CARDIOVASCULAR: Regular rate and rhythm. No murmurs, rubs, or gallop LUNGS: Clear to auscultation bilaterally. No wheezes. No rhonchi ABDOMEN: Soft, nontender, nondistended. Positive bowel sounds. Normal active bowel sounds NEUROLOGICAL: Alert and oriented times three. Cranial nerves II through XII grossly intact. Sensation grossly intact EXTREMITIES: 5\5 RUE and 4/5 LUE, 5\5 strength right lower extremity. 4/5 strength in left lower extremity. ASSESSMENT:55-year-old F with past medical history of HTN and DM who presents status post right pontine stroke PLAN: 1. Rehab- PT/OT advance mobility and ADLs, strengthen/stretch/maintain ROM all 4 limbs, ambulating with RW room privileges -[employer] T[employer]ER for cog and swallow, upgraded to regular diet 2. 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 Cardiac- hx of HTN cont BP meds -HLD- cont statin -medicine consulted to assist in overall management 4. Resp- probable AYESHA- nocturnal , refer for outpatient sleep study on d/c -monitor for infection 5. Endo- hx of DM with recent episode of ketonuria due to poor po intake, A1C 6.4 %, cont diet and exercise 6. - completed course of antibiotics for Pyelonephritis, monitor for infection - hx of chronic incontinence cont oxybutynin 7. GI ppx- prilosec 8. DVT ppx- heparin, teds 9. Pain- tylenol, avoid meloxicam due to recent stroke, gabapentin -lidoderm patch to neck for cervicogenic headaches, will add lidoderm patch to low back for likely muscle strain, patient encouraged to work on tightening her core with movement to better support her spine 10. Psych- zoloft for depression -rozerem for insomnia 11. [id number] to home, progressing towards goals Allergies Coded Allergies: Sulfa (Sulfonamide Antibiotics) (Verified Allergy, Mild, ITCHING, 02/25/21) ceftriaxone (Verified Allergy, Mild, ITCHING, 02/25/21) ciprofloxacin (Verified Allergy, Mild, ITCHING, 02/25/21) Vital Signs Vital Signs Date Time Temp Pulse Resp B/P (MAP) Pulse Ox O2 Delivery O2 Flow Rate FiO2 03/03/21 08:01 72 03/03/21 07:59 130/68 03/03/21 06:00 97.1 18 97 Room Air Laboratory Data CBC/BMP Laboratory Tests 03/03/21 06:33 Labs 24H Laboratory Tests 2 03/02/21 17:27: Bedside Glucose (Misc Panel) 109H 03/03/21 06:33: Immature Granulocyte % (Auto) 0.4, Neutrophils (%) (Auto) 58.1, Lymphocytes (%) (Auto) 30.7, Monocytes (%) (Auto) 9.0H, Eosinophils (%) (Auto) 1.6, Basophils (%) (Auto) 0.2, Neutrophils # (Auto) 2.9, Lymphocytes # (Auto) 1.5, Monocytes # (Auto) 0.5, Eosinophils # (Auto) 0.1, Basophils # (Auto) 0.0, Nucleated Red Blood Cells % (auto) 0.0, Anion Gap 3L, Glomerular Filtration Rate > 60.0, Calcium Level 9.6 Current Medications Current Medications Current Medications Medications (Trade) Dose Ordered Sig/Mike Route PRN Reason Start Time Stop Time Status Last Admin Dose Admin Acetaminophen (Tylenol Tab) 1,000 mg Q8H PO 02/25/21 14:00 03/03/21 05:16 Aspirin (Ecotrin) 81 mg DAILY PO 02/26/21 09:00 03/03/21 08:00 Atorvastatin Calcium (Lipitor) 40 mg QHS PO 02/25/21 21:00 03/02/21 20:06 Bisacodyl (Dulcolax Suppository) 10 mg DAILYPRN PRN [place] CONSTIPATION 02/25/21 11:35 Clopidogrel Bisulfate (PLAVix) 75 mg DAILY PO 02/26/21 09:00 03/03/21 08:00 Cyanocobalamin (Vitamin B12) 1,000 mcg DAILY PO 02/26/21 09:00 03/03/21 08:01 Dextrose (Dextrose 50%) 25 ml ASDIRECTED PRN IV SEE LABEL COMMENTS 02/25/21 11:35 Docusate Sodium (Colace) 100 mg BID PO 02/25/21 21:00 03/03/21 07:59 Enalapril Maleate (Vasotec) 5 mg BID PO 02/25/21 21:00 03/03/21 07:59 Gabapentin (Neurontin) 200 mg TID PO 02/25/21 16:00 03/03/21 08:00 Glucagon (Glucagon) 1 mg ASDIRECTED PRN SC SEE LABEL COMMENTS 02/25/21 11:35 Glucose (Glucose) 16 GM ASDIRECTED PRN PO SEE LABEL COMMENTS 02/25/21 11:35 Heparin Sodium (Porcine) (Heparin) 5,000 units Q12H SC 02/25/21 11:35 02/25/21 20:55 DC Heparin Sodium (Porcine) (Heparin) 5,000 units Q12H SC 02/25/21 21:00 03/03/21 07:58 Home Med (Home Med List Complete!) ASDIRECTED XX 02/25/21 13:15 02/25/21 13:28 DC Hydrochlorothiazide (Hydrodiuril) 12.5 mg DAILY PO 02/26/21 09:00 03/03/21 07:59 Insulin Human Lispro (HumaLOG INSULIN) SEE PROTOCOL TABLE AC SC 02/25/21 12:00 03/01/21 09:44 DC 03/01/21 07:25 Insulin Human Lispro (HumaLOG INSULIN) SEE PROTOCOL TABLE QHS SC 02/25/21 21:00 03/01/21 09:44 DC Lidocaine (Lidoderm Patch) 1 patch DAILY TD 02/25/21 09:00 03/02/21 13:56 DC 02/26/21 08:56 Lidocaine (Lidoderm Patch) 2 patch DAILY TD 03/03/21 09:00 Metoprolol Tartrate (Lopressor) 50 mg BID PO 02/25/21 21:00 03/03/21 08:01 Non-Formulary Medication ( See Comment Field Below ) REMOVE LIDODERM PATCH DAILY@21 XX 03/02/21 21:00 UNV Non-Formulary Medication ( See Comment Field Below ) REMOVE LIDODERM PATCH DAILY@ XX 02/25/21 21:00 03/02/21 20:07 Omeprazole (PriLOSEC) 20 mg BID PO 02/25/21 21:00 03/03/21 08:00 Oxybutynin Chloride (Ditropan Xl) 5 mg DAILY PO 02/26/21 12:00 03/02/21 11:41 DC 03/02/21 07:30 Oxybutynin Chloride (Ditropan Xl) 10 mg DAILY PO 03/03/21 09:00 03/03/21 08:00 Ramelteon (Rozerem) 8 mg QHS PRN PO INSOMNIA 02/25/21 20:30 02/28/21 21:46 Senna (Senokot) 1 tab QHS PO 02/25/21 21:00 03/02/21 20:06 Sertraline HCl (Zoloft) 25 mg DAILY PO 02/26/21 09:00 03/03/21 08:00 Vitamin D (Vitamin D) 2,000 units DAILY PO 02/26/21 09:00 03/03/21 07:58 NEIDA CORREA MD Mar 03, 2021 09:47
[2021-03-03 14:00] VITALS: BP 111/54
[2021-03-03 20:00] VITALS: BP 148/90
[2021-03-03] MEDS: ATORVASTATIN 20 MG TAB PO SCH (20:11)
[2021-03-03] MEDS: SENNA 8.6 MG TAB (SENOKOT) PO SCH (20:13)
[2021-03-03] MEDS: GABAPENTIN 300 MG CAP PO SCH (20:13)
[2021-03-03] MEDS: **NOTE PATIENT COMMENT** MISC XX SCH (20:14)
[2021-03-03] MEDS: RAMELTEON 8 MG TAB (ROZEREM) PO PRN (20:19)
[2021-03-04] MEDS: ACETAMINOPHEN 500 MG TAB PO SCH ×3 (05:28→22:12)
[2021-03-04 06:00] VITALS: BP 124/77
[2021-03-04] MEDS: VITAMIN D 1,000 INTERNATIONAL UNITS TABLET PO SCH (07:40)
[2021-03-04] MEDS: ASPIRIN 81MG ENTERIC TABLET PO SCH (07:40)
[2021-03-04] MEDS: CYANOCOBALAMIN 500 MCG TAB PO SCH (07:41)
[2021-03-04] MEDS: DOCUSATE SODIUM 100MG CAPSULE PO SCH ×2 (07:41→22:15)
[2021-03-04] MEDS: GABAPENTIN 100 MG CAP PO SCH ×2 (07:41→16:05)
[2021-03-04] MEDS: OMEPRAZOLE 20 MG CAP PO SCH ×2 (07:41→22:14)
[2021-03-04] MEDS: SERTRALINE HCL 25 MG TABLET PO SCH (07:41)
[2021-03-04] MEDS: CLOPIDOGREL 75 MG TAB PO SCH (07:41)
[2021-03-04] MEDS: oxyBUTYnin *DITROPAN XL* 5 MG TABCR PO SCH (07:42)
[2021-03-04] MEDS: HEPARIN SOD (PORCINE) 5000UNITS/ML 1ML VIAL/SYRINGE SC SCH ×2 (07:42→22:15)
[2021-03-04] MEDS: hydroCHLOROthiazide 12.5 MG CAPSULE PO SCH (07:44)
[2021-03-04] MEDS: ENALAPRIL MALEATE 10 MG TAB PO SCH ×2 (07:44→22:14)
[2021-03-04] MEDS: METOPROLOL TART 50 MG TAB PO SCH ×2 (07:45→22:14)
[2021-03-04] MEDS: LIDOCAINE 5% (LIDODERM) PATCH TD SCH (07:45)
[2021-03-04] MEDS: REMEDY PHYTOPLEX Z-GUARD PASTE 113GM TUBE (FROM STOREROOM PRODUCT) TOP SCH ×3 (07:46→22:15)
[2021-03-04] MEDS ORDERED: VITA500T40 PO (11:33)
[2021-03-04] MEDS ORDERED: ENAL-36 PO (11:33)
[2021-03-04] MEDS ORDERED: VITAD1000T PO (11:33)
[2021-03-04] MEDS ORDERED: SERT25TA21 PO (11:33)
[2021-03-04] MEDS ORDERED: CLOP75TA2 PO (11:33)
[2021-03-04] MEDS ORDERED: LOPR1TAB6 PO (11:33)
[2021-03-04] MEDS ORDERED: DITR5TAB PO (11:33)
[2021-03-04] MEDS ORDERED: GABA-1171 PO (11:33)
[2021-03-04] MEDS ORDERED: ATOR40TA75 PO (11:33)
[2021-03-04] MEDS ORDERED: GABA-282 PO (11:33)
[2021-03-04] MEDS ORDERED: HYDR12CA PO (11:33)
[2021-03-04] MEDS ORDERED: ASPI-551 PO (11:33)
[2021-03-04 14:00] VITALS: BP 139/77
[2021-03-04 22:00] VITALS: BP 124/59
[2021-03-04] MEDS: RAMELTEON 8 MG TAB (ROZEREM) PO PRN (22:12)
[2021-03-04] MEDS: GABAPENTIN 300 MG CAP PO SCH (22:13)
[2021-03-04] MEDS: ATORVASTATIN 20 MG TAB PO SCH (22:14)
[2021-03-04] MEDS: SENNA 8.6 MG TAB (SENOKOT) PO SCH (22:15)
[2021-03-04] MEDS: **NOTE PATIENT COMMENT** MISC XX SCH (22:15)
[2021-03-05] MEDS: ACETAMINOPHEN 500 MG TAB PO SCH (05:44)
[2021-03-05 06:00] VITALS: BP 131/71
[2021-03-05 06:54] LABS: BASO % 0.7 % (0.0-1.0); EOS # 0.1 10^3/uL (0.0-0.5); EOS % 2.4 % (0.0-3.0); HEMATOCRIT 38.9 % (36.0-47.0); HEMOGLOBIN 12.6 g/dl (12.0-15.5); LYMPH # 1.4 10^3/uL (1.5-5.0); LYMPH % 29.8 % (24.0-44.0); MEAN CORPUSCULAR HGB CONC 32.4 g/dl (32.0-36.5); MEAN CORPUSCULAR VOLUME 89.6 fl (80.0-96.0); MONO # 0.5 10^3/uL (0.0-0.8); MONO % 10.5 % (2.0-8.0); NEUTROPHILS # 2.6 10^3/uL (1.5-8.5); NEUTROPHILS % 55.9 % (36.0-66.0); PLATELET COUNT, AUTOMATED 206 10^3/uL (150-450); RED BLOOD COUNT 4.34 10^6/uL (4.00-5.40); WHITE BLOOD COUNT 4.6 10^3/uL (4.0-10.0)
[2021-03-05 07:20] LABS: BLOOD UREA NITROGEN 27 MG/DL (7-18); CALCIUM LEVEL 9.4 MG/DL (8.5-10.1); CARBON DIOXIDE LEVEL 29 MEQ/L (21-32); CHLORIDE LEVEL 105 MEQ/L (98-107); CREATININE FOR GFR 0.68 MG/DL (0.55-1.30); GLOMERULAR FILTRATION RATE > 60.0 (>51); GLUCOSE, FASTING 128 MG/DL (70-100); POTASSIUM SERUM 4.3 MEQ/L (3.5-5.1); SODIUM LEVEL 140 MEQ/L (136-145)
[2021-03-05] MEDS: REMEDY PHYTOPLEX Z-GUARD PASTE 113GM TUBE (FROM STOREROOM PRODUCT) TOP SCH (09:00)
[2021-03-05] MEDS: LIDOCAINE 5% (LIDODERM) PATCH TD SCH (09:00)
[2021-03-05] MEDS: hydroCHLOROthiazide 12.5 MG CAPSULE PO SCH (09:01)
[2021-03-05] MEDS: ASPIRIN 81MG ENTERIC TABLET PO SCH (09:01)
[2021-03-05] MEDS: GABAPENTIN 100 MG CAP PO SCH (09:03)
[2021-03-05] MEDS: OMEPRAZOLE 20 MG CAP PO SCH (09:03)
[2021-03-05] MEDS: CYANOCOBALAMIN 500 MCG TAB PO SCH (09:03)
[2021-03-05] MEDS: CLOPIDOGREL 75 MG TAB PO SCH (09:03)
[2021-03-05] MEDS: ENALAPRIL MALEATE 10 MG TAB PO SCH (09:03)
[2021-03-05 09:05] VITALS: BP 150/81
[2021-03-05] MEDS: oxyBUTYnin *DITROPAN XL* 5 MG TABCR PO SCH (09:05)
[2021-03-05] MEDS: DOCUSATE SODIUM 100MG CAPSULE PO SCH (09:05)
[2021-03-05] MEDS: VITAMIN D 1,000 INTERNATIONAL UNITS TABLET PO SCH (09:05)
[2021-03-05] MEDS: METOPROLOL TART 50 MG TAB PO SCH (09:05)
[2021-03-05] MEDS: SERTRALINE HCL 25 MG TABLET PO SCH (09:05)
[2021-03-05] MEDS: HEPARIN SOD (PORCINE) 5000UNITS/ML 1ML VIAL/SYRINGE SC SCH (09:06)
== END 2021-03-05 13:00 | disposition home health service (06) | DRG 57 ==
LOC: M PM&R 11:27
PROVIDERS: ADMIT Physical Medicine & Rehabilitation; ATTEND Physical Medicine & Rehabilitation
DX: I69.354 Hemiplegia and hemiparesis following cerebral infarction affecting left non-dominant side (principal); Z68.41 Body mass index [BMI] 40.0-44.9, adult; G47.33 Obstructive sleep apnea (adult) (pediatric); F41.9 Anxiety disorder, unspecified; F32.9 Major depressive disorder, single episode, unspecified; K21.9 Gastro-esophageal reflux disease without esophagitis; I10 Essential (primary) hypertension; E78.5 Hyperlipidemia, unspecified; E66.01 Morbid (severe) obesity due to excess calories; G25.81 Restless legs syndrome; R32 Unspecified urinary incontinence; Z74.09 Other reduced mobility; Z74.1 Need for assistance with personal care; Z96.642 Presence of left artificial hip joint; E11.9 Type 2 diabetes mellitus without complications; Z79.82 Long term (current) use of aspirin; Z79.1 Long term (current) use of non-steroidal anti-inflammatories (NSAID); Z79.899 Other long term (current) drug therapy; Z79.02 Long term (current) use of antithrombotics/antiplatelets; Z88.1 Allergy status to other antibiotic agents; Z88.2 Allergy status to sulfonamides